=== PATIENT | male | born 1940 | race Caucasian/White ===

== ENCOUNTER 2021-06-01 11:55 | Emergency (ER) | payer MEDICARE, SELFPAY ==
[2021-06-01 12:24] VITALS: BP 122/104; PULSE 65; RESP 17; TEMP 36.6; O2SAT 100; BMI 18.3
--- NOTE | 2021-06-01 12:35 | RAD_ITS ---
STUDY: X-RAY - LEFT KNEE REASON FOR EXAM: Male, 80 years old. FALL, PAIN -- ED WAITING ROOM TECHNIQUE: 4 view(s) of the knee. COMPARISON: None. FINDINGS: There is demineralization of the visualized distal femur. There is demineralization of the tibia and fibula. Normal proximal tibiofibular articulation. Appearance of a small hairline fracture between the tibial spines seen on image #2. Otherwise no visualized acute fractures. There is mild degenerative arthrosis of the medial femorotibial compartment. There is mild degenerative arthrosis of the lateral femorotibial compartment. There is mild degenerative arthrosis of the patellofemoral articulation. There is a moderate volume joint effusion. The soft tissue structures are unremarkable. RAD/Knee 4 or More Views IMPRESSION: 1. Appearance of a small hairline fracture between the tibial spines seen on image #2. Otherwise no visualized acute fractures. 2. Moderate size joint effusion. Electronically Signed: Onofre Gutierrez MD at 18:28 EST , Service support ,
--- NOTE | 2021-06-01 13:15 | CT_ITS ---
STUDY: CT SCAN KNEE LEFT REASON FOR EXAM: Male, 80 years old. Injury RADIATION DOSAGE (If Supplied By Facility): CTDIvol = ( 19.84 ) mGy, DLP = ( 586.34 ) mGycm. Individualized dose optimization techniques were used for this CT.? TECHNIQUE: Multiple axial tomographic images of the knee joint were obtained. Axial and coronal reconstruction was obtained as well. COMPARISON: None. FINDINGS: There is a nondisplaced impacted fracture of the lateral tibial plateau. There is evidence of chondrocalcinosis. Joint effusion with a fat fluid level. CT/Extremity Lower without Contra IMPRESSION: Nondisplaced mildly depressed fracture of the lateral tibial plateau with evidence of a joint effusion and chondrocalcinosis. Electronically Signed: Paxton Menendez MD at 15:31 EST , Service support ,
--- NOTE | 2021-06-01 14:35 | ED.VIS.LOWEX ---
HPI History of Present Illness HPI Narrative: Patient presents with left knee pain that began after a fall today. Patient states he slipped and fell. Patient states he landed on his left knee. Patient states his pain is worse with any movement. Patient states he is unable to bear weight because of the pain. Patient denies any paresthesias or weakness. Patient denies any head injury or loss of consciousness. Patient states his pain is better with rest. Patient noted increased swelling in his left knee. Chief Complaint: Lower Extremity Injury Informant: patient Occured/Mechanism Mechanism/Context: Yes fall Onset/Context/Timing Onset: Today Context: Sudden Onset Timing: Continuous Quality of Pain: Aching Worsened by: Movement Relieved by: Rest Associated Symptoms Associated Symptoms: Negative for Parasthesia, Weakness and Loss of Funtion PFSH PFSH Medical History no medical history no medical history Home Medications hydrocodone-acetaminophen 1 tab PO Q6H PRN PRN 3 Days #10 tablet 06/01/21 [Rx Last Taken Unknown] Allergy/AdvReac Type Severity Reaction Status Date / Time No Known Allergies Allergy Verified 06/01/21 12:26 Surgical History (Updated 06/01/21 @ 14:[address] Jameel Brown, DO) History of ankle surgery ROS ROS ED Constitutional Constitutional ED: Denies chills or fever(s) Eyes Eyes: Denies blurry vision or change in vision ENT ENT ED: Denies rhinorrhea or sore throat Cardiovascular Cardiovascular: Denies chest pain or palpitations Respiratory/Chest Respiratory/Chest: Denies cough or dyspnea Gastrointestinal Gastrointestinal: Denies nausea or vomiting Genitourinary Genitourinary ED: Denies dysuria or hematuria Musculoskeletal Musculoskeletal: Denies back pain or neck pain Integumentary Denies abscess or rash Neurologic Neurologic: Denies headache(s) or weakness Allergic/Immunologic Allergic/Immunologic ED: Denies mouth swelling or urticaria EXAM Physical Exam Const Vital Signs: 06/01/21 12:24 Temperature 97.9 F Temperature Source Oral Pulse Rate 65 Respiratory Rate 17 Blood Pressure 122/104 H Blood Pressure Mean 110 Pulse Ox 100 Oxygen Delivery Method Room Air Positive well nourished and well developed General Appearance ED: well developed HEENT Reports moist mucous membranes Neck full ROM Extremity Extremity Narrative: There is tenderness over the left knee. There is a moderate joint effusion. There is no obvious deformity noted. Range of motion was limited in all motions of the left knee secondary to pain. There is mild tenderness along the joint line. There is no laxity. There is pain with active extension of the knee. Patient is only able to hold off of the bed for a second. Sensation was intact to light touch bilaterally in the lower extremities. Pedal pulses are equal bilaterally. Neuro oriented x3, CN's II-XII intact bilaterally, moves all extremities and no sensory deficits noted Sensorium / Orientation: alert Psych mental status grossly normal MDM MDM MDM Narrative Medical decision making narrative: X-rays of the left knee were obtained. There are 4 views. On my interpretation, there is no acute fracture. There is a moderate effusion. There are some soft tissue swelling. There is no dislocation. CT scan of the left knee was obtained. There is a mildly displaced fracture of the lateral tibial plateau. This is interpreted by the radiologist and reviewed by myself. Patient was given a dose of [place] [address] here. Patient was given a knee immobilizer. Patient was given a prescription for [place] [address]. Patient has a walker at home and will use that. Patient was instructed to follow-up with orthopedics in 3 to 5 days. bakery worker conveyor line was in to talk to the patient. Patient declined any home health needs. Patient was instructed to ice and elevate the knee. Patient understood and was agreeable with the plan. All questions were answered. Discharge Plan Triage Chief Complaint: Lower Extremity Injury ED Provider: Jameel Brown Dx/Rx/DC Orders Clinical Impression: Closed fracture of left tibial plateau Instructions: ED Fracture, Knee Prescriptions: New hydrocodone-acetaminophen [hydrocodone-acetaminophen] 1 TABLET tablet 1 tab PO Q6H PRN PRN (Reason: Pain) 3 Days Qty: 10 RF: 0 Primary Care Provider: Care Physician,No Primary Referrals: Mary Mckinnon MD [STAFF PHYSICIAN] - 3-5 Days Baldomero Madera DO [STAFF PHYSICIAN] - 3-5 Days Care Physician,No Primary [Primary Care Provider] - Disposition Disposition: Home, Self Care
--- NOTE | 2021-06-01 15:00 | CM.ED ---
CORIN Note SW met with patient and his daughter, Guillermina, who was in the room. Patient resides with patient's other daughter, Rach and 12 year old daughter. Patient and his daughter said that someone is always with patient in the home. SW offered PT/OT and patient stated I don't need that. Patient's daughter said he will tell you no to offering PT/OT. SW explained that if patient changes his mind about home PT/OT he can always call [facility] Home [facility]. CORIN updated MD. Plan: CORIN discussed discharge plans for patient. Patient declined PT/OT. Kimberlyn PEREZ
[2021-06-01] MEDS: oxyCODONE 5 MG Tablet PO (15:08)
[2021-06-01 15:11] VITALS: BP 134/78; RESP 16
== END 2021-06-01 15:27 | disposition home or self-care (01) ==
PROVIDERS: Emergency Provider Emergency Medicine
DX: S82.142A Displaced bicondylar fracture of left tibia, initial encounter for closed fracture (principal); W01.0XXA Fall on same level from slipping, tripping and stumbling without subsequent striking against object, initial encounter; Y93.89 Activity, other specified; Y92.89 Other specified places as the place of occurrence of the external cause; Y99.8 Other external cause status
CPT/HCPCS: 73564; 73700; 99285